=== PATIENT | female | born 1940 | race Caucasian/White ===

== ENCOUNTER → 2017-09-10 08:19 | Outpatient (CLI) | payer MEDICARE, SELFPAY ==
[2017-09-10 10:14] LABS: Alanine Aminotransferase 28 IU/L (9-52); Albumin 4.5 g/dL (3.5-5.0); Albumin Globulin Ratio 1.7 (1.0-2.8); Alkaline Phosphatase 67 U/L (38-126); Aspartate Aminotransferase 24 IU/L (14-36); Bilirubin Total 1.5 mg/dL (0.2-1.3); Blood Urea Nitrogen 24 mg/dL (7-17); Carbon Dioxide 29 mmol/L (22-32); Chloride 101 mmol/L (98-107); Cholesterol 159 mg/dL (140-199); Estimated Glomerular Filt Rate 53.6 mL/min (>60); Globulin 2.6 g/dL (1.7-4.1); Glucose 97 mg/dL (80-110); HDL Cholesterol 59 mg/dL (40-60); HEMOLYSIS < 15 (0-50); LDL Cholesterol Calculated 72 mg/dL (<100); Potassium 4.5 mmol/L (3.4-5.1); Sodium 141 mmol/L (137-145); Total Protein 7.1 g/dL (6.3-8.2); Triglycerides 140 mg/dL (35-150)
[2017-09-10 10:21] LABS: Microalbumi Creatinin Ratio Ur 22.9 ug/mg CR (<30); Microalbumin Urine Random 1.1 mg/dL (0-1.6)
== END ==
PROVIDERS: Family Provider Physician Assistant; PCP Physician Assistant; Visit Provider Physician Assistant
DX: E78.2 Mixed hyperlipidemia (principal); I10 Essential (primary) hypertension; E78.5 Hyperlipidemia, unspecified
CPT/HCPCS: 36415; 80053; 80061; 82043; 82570